=== PATIENT | female | born 1990 ===

== ENCOUNTER 2019-06-25 08:00 | Outpatient (CLI) | payer OTHER ==
[2019-06-25 10:02] LABS: TOTAL VOLUME 24HRS,URINE 3700 mL
[2019-06-25 10:23] LABS: TOTAL PROTEIN,URINE TIMED < 6 mg/dL
== END 2019-06-25 23:59 | disposition home or self-care (01) ==
LOC: LAB.R 08:00
PROVIDERS: ATTEND Midwife
DX: O13.3 Gestational [pregnancy-induced] hypertension without significant proteinuria, third trimester (principal); Z3A.00 Weeks of gestation of pregnancy not specified
CPT/HCPCS: 84156

== ENCOUNTER 2019-06-30 22:55 | Outpatient (CLI) | payer OTHER | END 2019-06-30 22:56 | disposition critical access hospital (66) | LOC: EMS 22:55 | PROVIDERS: ATTEND Surgery | DX: O75.89 Other specified complications of labor and delivery (principal) | CPT/HCPCS: A0425; A0429 ==

== ENCOUNTER 2019-06-30 23:21 | Observation (INO) | payer OTHER ==
[2019-06-30] MEDS ORDERED: CARBOPROST TROMETHAMINE 250 MCG/ML AMP IM ONE (23:25)
[2019-06-30] MEDS ORDERED: miSOPROStoL 200 MCG TABLET PR ONE (23:25)
[2019-06-30] MEDS ORDERED: OXYTOCIN/SODIUM CHLORIDE 500 ML IV PRN (23:25)
[2019-06-30] MEDS ORDERED: METHYLERGONOVINE 0.2 MG/ML VIAL IM ONE (23:25)
[2019-06-30] MEDS ORDERED: LACTATED RINGERS 1,000 ML IV SCH (23:45)
[2019-07-01 00:03] LABS: BASOPHILS # (AUTO) 0.1 10^3/uL (0.0-0.1); BASOPHILS % (AUTO) 0.3 %; EOSINOPHILS % (AUTO) 0.1 %; HGB - HEMOGLOBIN 12.6 g/dL (12.0-16.0); LYMPHOCYTES % (AUTO) 5.3 %; MEAN CORPUSCULAR HGB CONC 35.2 g/dL (32.0-36.0); MEAN PLATELET VOLUME 9.7 fL (7.9-10.8); MONOCYTES # (AUTO) 0.9 10^3/uL (0.0-1.0); MONOCYTES % (AUTO) 4.8 %; NEUTROPHILS # (AUTO) 15.8 10^3/uL (1.5-6.6); NEUTROPHILS % (AUTO) 88.7 %; PLT - PLATELET COUNT 263 10^3/uL (130-450); RED BLOOD COUNT 4.07 10^6/uL (4.20-5.40); RED CELL DISTRIBUTION WIDTH 12.8 % (12.0-15.0); WHITE BLOOD COUNT 17.8 x10^3/uL (4.8-10.8)
[2019-07-01] MEDS ORDERED: fentaNYL 100 MCG/2 ML VIAL ONE ×2 (00:05→00:06)
[2019-07-01] MEDS: LIDOCAINE-MPF 1% 30 ML VIAL ID PRN ×2 (00:12→00:23)
[2019-07-01] MEDS ORDERED: LIDOCAINE-MPF 1% 30 ML VIAL ONE (00:14)
[2019-07-01 00:17] LABS: ALBUMIN 3.2 g/dL (3.2-5.5); ALBUMIN/GLOBULIN RATIO 0.8 (1.0-2.2); BILIRUBIN,TOTAL 0.4 mg/dL (0.2-1.0); CALCIUM 8.9 mg/dL (8.5-10.3); CREATININE 0.5 mg/dL (0.4-1.0); URIC ACID 3.9 mg/dL (2.6-7.2)
[2019-07-01 00:58] LABS: CREATININE,URINE 47.4 mg/dL; PROTEIN/CREATININE RATIO,URINE 0.4 (<=0.2)
--- NOTE | 2019-07-01 03:04 | PROCEDURE REPORT ---
Hospitalist Procedure Note - Procedure Note Procedure Note: Patient noted onset of labor roughly 3:00 in the afternoon. The became strongly at roughly 5 and she delivered at 930 approximately. Her lay midwife arrived very soon after delivery however the placenta remained in place. And after 2-1/2 hours she presented here for delivery of the placenta. She has not received any kind of narcotics or anything else like that. After long discussion with the patient decided to try and deliver the placenta will try and do this without any intrauterine manipulation. Patient was started on Pitocin she had fentanyl standing viable was not needed. Her placenta was delivered spontaneously inspected and felt to be intact. There was minimal bleeding at time of delivery. She was noted to have secondary glass second-degree laceration. Following local anesthesia with 1% lidocaine this was closed with 3-0 Vicryl and the note showed evidence of good closure. There was minimal bleeding at this time. Her total blood loss during the delivery the placenta was estimated roughly 250 cc both mother correction mother tolerated delivery of the placenta well. Because of some elevated blood pressures are decided observe her overnight for both blood pressure as well as her temperature for monitor for infection this ends dictation.
[2019-07-01] MEDS ORDERED: ACETAMINOPHEN 325 MG TABLET PO PRN (03:10)
--- NOTE | 2019-07-01 03:17 | PREOP HISTORY & PHYSICAL ---
DATE OF SERVICE: 06/30/2019 Physician: Wicho Petit MD IDENTIFICATION: The patient is a 28-year-old. She is 1, para 1. She was seen at [facility], [place] for her entire . She started her OB care at 9 weeks. She identified her ovulation for her gestational age. She was 39 weeks 4 days at time of delivery. HISTORY OF PRESENT ILLNESS: The patient was seen at [facility] for her OB care. Her visit on 06/05/2019 showed a blood pressure of 140/86. She had PIH labs drawn at that time, which showed her to be protein creatinine ratio of 0.2. She has shown a mild elevation of her SGOT and SGPT; however, creatinine level was normal. She was sent home on home blood pressure monitoring and states her blood pressure was running 120s/80s at home. She was seen on 06/30/2019, at which time her blood pressure was 120/76. She declined a pelvic examination at that time. Her OB care has been unremarkable otherwise. She is noted to be O positive, rubella immune. Her 50 gram Glucola was 87. GBS negative. PAST MEDICAL HISTORY: None. PAST SURGICAL HISTORY: None. ALLERGIES: NONE KNOWN. CURRENT MEDICATIONS: vitamins. HABITS: The patient denies use of alcohol, tobacco, street or addictive drugs. SOCIAL HISTORY: The patient is currently . 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 PHYSICAL EXAMINATION HEENT: Pupils are equal and round. Extraocular muscles are intact. Thyroid is not palpably enlarged. HEART: Regular rate and rhythm without murmurs. LUNGS: Lung jorge are clear without rales or wheezes. ABDOMEN: Uterus is roughly at umbilicus. Upon inspecting the perineum, she has a second-degree laceration as well as the umbilical cord was noted at the introitus. She had no CVA tenderness noted. IMPRESSION: A 28-year-old 1, para 1 female with retained placenta at 39.4 weeks. PLAN: We will try and deliver the placenta. We will try first vaginal maneuvers and, if necessary, we will take her to the operating room. TD: 07/01/2019 03:04 ADALBERTO
[2019-07-01] MEDS ORDERED: IBUPROFEN 600 MG TABLET PO SCH (04:00)
[2019-07-01] MEDS ORDERED: LACTATED RINGERS 1,000 ML IV SCH (04:00)
[2019-07-01] MEDS ORDERED: DOCUSATE SODIUM 100 MG CAPSULE PO SCH (09:00)
[2019-07-01 10:25] VITALS: BP 123/58
--- NOTE | 2019-07-01 10:35 | PROVIDER PROGRESS NOTE ---
Subjective - Prog Note Date Prog Note Date: 07/01/19 Prog Note Time: 10:32 - Subjective Pt reports feeling: Improved (Pain 1/10, bleeding light) Objective - Vital Signs/Intake & Output Reviewed Vital Signs: Yes Vital Signs: Vital Signs x48h Temp Pulse Resp BP Pulse Ox 07/01/19 10:24 37.0 C 87 16 123/58 L 100 07/01/19 07:30 37.2 C 85 18 124/67 100 07/01/19 05:24 37.1 C 87 16 117/53 L 99 07/01/19 03:30 36.9 C 84 18 111/51 L 100 Intake & Output: Intake & Output 06/28/19 06/29/19 06/30/19 07/01/19 23:59 23:59 23:59 23:59 Intake Total 1385.00 Output Total 400 1400 Balance -400 -15.00 - Objective General Appearance: positive: No acute distress, Alert Abdomen: positive: Non-tender, No organomegaly, Mass (U-3) - Lab Results Fish Bones: 06/30/19 23:50 06/30/19 23:50 Other Labs: Lab Results x24hrs 07/01/19 07/01/19 06/30/19 Range/Units 01:05 00:33 23:50 WBC (4.8-10.8) x10^3/uL RBC (4.20-5.40) 10^6/uL Hgb (12.0-16.0) g/dL Hct (37.0-47.0) % MCV (81.0-99.0) fL MCH (27.0-31.0) pg MCHC (32.0-36.0) g/dL RDW (12.0-15.0) % Plt Count (130-450) 10^3/uL MPV (7.9-10.8) fL Neut # (Auto) (1.5-6.6) 10^3/uL Lymph # (Auto) (1.5-3.5) 10^3/uL [place] # (Auto) (0.0-1.0) 10^3/uL Eos # (Auto) (0.0-0.7) 10^3/uL Baso # (Auto) (0.0-0.1) 10^3/uL Absolute Nucleated RBC x10^3/uL Nucleated RBC % /100WBC Sodium 132 L (135-145) mmol/L Potassium 3.7 (3.5-5.0) mmol/L Chloride 100 L (101-111) mmol/L Carbon Dioxide 21 (21-32) mmol/L Anion Gap 11.0 (6-13) BUN 9 (6-20) mg/dL Creatinine 0.5 (0.4-1.0) mg/dL Estimated GFR (MDRD) 146 (>89) Glucose 142 H (70-100) mg/dL Uric Acid 3.9 (2.6-7.2) mg/dL Calcium 8.9 (8.5-10.3) mg/dL Total Bilirubin 0.4 (0.2-1.0) mg/dL AST 50 H (10-42) IU/L ALT 60 (10-60) IU/L Alkaline Phosphatase 167 H (42-121) IU/L Total Protein 7.0 (6.7-8.2) g/dL Albumin 3.2 (3.2-5.5) g/dL Globulin 3.8 (2.1-4.2) g/dL Albumin/Globulin Ratio 0.8 L (1.0-2.2) Urine Creatinine 47.4 mg/dL Ur Total Protein Timed 18 mg/dL Protein/Creatinin Ratio 0.4 H (<=0.2) Blood Type Blood Type Recheck O POSITIVE Antibody Screen Crossmatch IS Only 06/30/19 06/30/19 Range/Units 23:50 23:50 WBC 17.8 H (4.8-10.8) x10^3/uL RBC 4.07 L (4.20-5.40) 10^6/uL Hgb 12.6 (12.0-16.0) g/dL Hct 35.8 L (37.0-47.0) % MCV 88.0 (81.0-99.0) fL MCH 31.0 (27.0-31.0) pg MCHC 35.2 (32.0-36.0) g/dL RDW 12.8 (12.0-15.0) % Plt Count 263 (130-450) 10^3/uL MPV 9.7 (7.9-10.8) fL Neut # (Auto) 15.8 H (1.5-6.6) 10^3/uL Lymph # (Auto) 1.0 L (1.5-3.5) 10^3/uL [place] # (Auto) 0.9 (0.0-1.0) 10^3/uL Eos # (Auto) 0.0 (0.0-0.7) 10^3/uL Baso # (Auto) 0.1 (0.0-0.1) 10^3/uL Absolute Nucleated RBC 0.00 x10^3/uL Nucleated RBC % 0.0 /100WBC Sodium (135-145) mmol/L Potassium (3.5-5.0) mmol/L Chloride (101-111) mmol/L Carbon Dioxide (21-32) mmol/L Anion Gap (6-13) BUN (6-20) mg/dL Creatinine (0.4-1.0) mg/dL Estimated GFR (MDRD) (>89) Glucose (70-100) mg/dL Uric Acid (2.6-7.2) mg/dL Calcium (8.5-10.3) mg/dL Total Bilirubin (0.2-1.0) mg/dL AST (10-42) IU/L ALT (10-60) IU/L Alkaline Phosphatase (42-121) IU/L Total Protein (6.7-8.2) g/dL Albumin (3.2-5.5) g/dL Globulin (2.1-4.2) g/dL Albumin/Globulin Ratio (1.0-2.2) Urine Creatinine mg/dL Ur Total Protein Timed mg/dL Protein/Creatinin Ratio (<=0.2) Blood Type O POSITIVE Blood Type Recheck Antibody Screen NEGATIVE Crossmatch IS Only See Detail Assessment/Plan - Problem List (1) Retained placenta Impression: no evidence of infection reviewed contraception, breast feeding. Qualifiers: Retained placenta detail: complete placenta Qualified Code(s): O73.0 - Retained placenta without hemorrhage
== END 2019-07-01 10:50 | disposition home or self-care (01) ==
LOC: WFO 23:21 → FBP 23:23 → WFO 07-01 03:13 → FBP 07-01 03:14
PROVIDERS: ADMIT Obstetrics & Gynecology; ATTEND Obstetrics & Gynecology
DX: O73.0 Retained placenta without hemorrhage (principal); O70.1 Second degree perineal laceration during delivery; O16.5 Unspecified maternal hypertension, complicating the puerperium; Z3A.39 39 weeks gestation of pregnancy
CPT/HCPCS: 36415; 59300; 80053; 82570; 84156; 84550; 85025; 86850; 86900; 86901; 86920; 88307; 96365; 96366; G0378; J7120